=== PATIENT | female | born 1995 | race Caucasian/White ===

== ENCOUNTER 2018-07-25 23:17 | Emergency (ER) | payer SELFPAY ==
[2018-07-25 23:48] LABS: Absolute Lymphocytes (CBC) 2.4 K/uL (0.7-4.9); Absolute Monocytes 0.8 K/uL (0.1-1.3); Absolute Neutrophil 7.4 K/uL (1.8-8.0); Basophils % 0.7 % (0-1.3); Eosinophils % 0.6 % (0-4.4); Hematocrit 40.4 % (36.0-45.0); Lymphocytes % 22.3 % (15.3-44.8); MCH 32.3 pg (27.0-35.0); MCV 91.7 fL (80-100); MPV 7.4 fL (7.6-11.3); Monocytes % 7.5 % (3.3-12.3)
[2018-07-25] MEDS ORDERED: THIAMINE 200 MG/2 ML INJ ONE (23:49)
[2018-07-25] MEDS ORDERED: MULTIVITAMINS 10 ML VIAL (INJ) IV ONE (23:50)
[2018-07-25] MEDS ORDERED: NA CHLORIDE 0.9% 2,000 ML ONE (23:50)
[2018-07-25] MEDS ORDERED: FOLIC ACID 5 MG/ML VIAL ONE (23:50)
[2018-07-25 23:54] LABS: Urine Blood NEGATIVE (NEG); Urine Glucose NEGATIVE (NEG); Urine Protein NEGATIVE (NEG); Urine Specific Gravity <1.005 (1.005-1.030); Urine pH 6.5 (5.0-7.0)
[2018-07-25 23:57] LABS: Protime INR 1.11
[2018-07-25 23:57] LABS: Barbiturates NEGATIVE (NEGATIVE); Benzodiazepines NEGATIVE (NEGATIVE); Cocaine NEGATIVE (NEGATIVE); METHAMPHETAM NEGATIVE (NEGATIVE); Methadone NEGATIVE (NEGATIVE); Opiates NEGATIVE (NEGATIVE); Phencyclidine NEGATIVE (NEGATIVE); THC Cannibis NEGATIVE (NEGATIVE)
[2018-07-26 00:20] LABS: ALT/SGPT 25 U/L (12-78); AST/SGOT 20 U/L (15-37); Albumin 3.9 g/dL (3.4-5.0); Alkaline Phosphatase 91 U/L (45-117); BUN Blood Urea Nitrogen 4 mg/dL (7-18); Bicarbonate 29 mmol/L (21-32); Bilirubin Direct < 0.1 mg/dL (0-0.2); Bilirubin Total 0.2 mg/dL (0.2-1.0); Glucose Level 68 mg/dL (74-106); Potassium 3.7 mmol/L (3.5-5.1); Protein, Total 7.8 g/dL (6.4-8.2); Sodium Level 139 mmol/L (136-145)
[2018-07-26] MEDS ORDERED: D50W 25 GM/50 ML SYRINGE IV ONE ×2 (00:40→02:39)
[2018-07-26] MEDS ORDERED: NA CHLORIDE 0.9% 1,000 ML ONE ×2 (03:32→07:37)
--- NOTE | 2018-07-26 07:32 | ER ---
Nurse's Notes [facility] Name: Myranda Madsen Age: 23 yrs Sex: Female : 1995 Arrival Date: 07/25/2018 Time: 23:20 Bed 17 Private MD: Diagnosis: Major depressive disorder, recurrent;Suicidal ideations;Suicide attempt;Alcohol abuse with intoxication;Post-traumatic stress disorder (PTSD) Presentation: 07/25 23:20 Presenting complaint: EMS states: Patient ingested about 20 Tramadol pills about one ao and half hour ago. Patient was drinking wine and stated that she had about two bottles of wine. Patient also stated that she took two clonazepam. Patient reported suicidal thoughts but denies at this time any suicidal ideation. EMS report vomiting x1. Poison control was called by EMS and the recommendations was to put her in seizure precautions and monitor for respiratory distress. Transition of care: patient was not received from another setting of care. Onset of symptoms was July 25, 2018 at 21:00. Risk Assessment: Do you want to hurt yourself or someone else? Patient reports no desire to harm self or others. Initial Sepsis Screen: Does the patient meet any 2 criteria? No. Patient's initial sepsis screen is negative. Does the patient have a suspected source of infection? No. Patient's initial sepsis screen is negative. Care prior to arrival: None. 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 - Social history:: Smoking status: Patient uses tobacco products, smokes one-half pack cigarettes per day, Patient uses alcohol, only on a social basis. Patient/guardian denies using street drugs. - Ebola Screening: : Patient negative for fever greater than or equal to 101.5 degrees Fahrenheit, and additional compatible Ebola Virus Disease symptoms Patient denies exposure to infectious person Patient denies travel to an Ebola-affected area in the 21 days before illness onset. Screenin:47 Abuse screen: Denies threats or abuse. Denies injuries from another. Nutritional ao screening: No deficits noted. Tuberculosis screening: No symptoms or risk factors identified. Fall Risk None identified. Assessment: 23:33 General: Appears in no apparent distress. Behavior is calm, drowsy, flat. Pain: Denies ao pain. Neuro: Level of Consciousness is awake, alert, obeys commands, Oriented to person, place, time, situation, Weakness Speech is slurred, Facial symmetry appears normal, Pupils are PERRLA. Cardiovascular: Denies chest pain, shortness of breath. Respiratory: Airway is patent Respiratory effort is even, unlabored, Respiratory pattern is regular, symmetrical. GI: Abdomen is non-distended. : No signs and/or symptoms were reported regarding the genitourinary system. EENT: No signs and/or symptoms were reported regarding the EENT system. Derm: Skin is intact, Skin is moist, Skin is pink, warm \T\ dry. normal, Skin temperature is warm. Musculoskeletal: No signs and/or symptoms reported regarding the musculoskeletal system. Musculoskeletal: Circulation, motion, and sensation intact. Range of motion: intact in all extremities. 23:57 Reassessment: No changes from previously documented assessment. Patient and/or family jd3 updated on plan of care and expected duration. Pain level reassessed. Patient is alert, oriented x 3, equal unlabored respirations, skin warm/dry/pink. 07/26 00:14 Reassessment: No changes from previously documented assessment. Patient and/or family jd3 updated on plan of care and expected duration. Pain level reassessed. Patient is alert, oriented x 3, equal unlabored respirations, skin warm/dry/pink. boyfriend at bedside. 01:04 Reassessment: Patient appears in no apparent distress at this time. No changes from jd3 previously documented assessment. Patient and/or family updated on plan of care and expected duration. Pain level reassessed. Patient is alert, oriented x 3, equal unlabored respirations, skin warm/dry/pink. Scottie Mary- boyfriend--[phone]. 02:00 Reassessment: Patient appears in no apparent distress at this time. No changes from jd3 previously documented assessment. Patient and/or family updated on plan of care and expected duration. Pain level reassessed. Patient is alert, oriented x 3, equal unlabored respirations, skin warm/dry/pink. resting in bed with eyes closed. 03:00 Reassessment: Patient appears in no apparent distress at this time. No changes from jd3 previously documented assessment. Patient and/or family updated on plan of care and expected duration. Pain level reassessed. Patient is alert, oriented x 3, equal unlabored respirations, skin warm/dry/pink. 04:00 Reassessment: Patient appears in no apparent distress at this time. Patient and/or jd3 family updated on plan of care and expected duration. Pain level reassessed. Patient is alert, oriented x 3, equal unlabored respirations, skin warm/dry/pink. 05:00 Reassessment: Patient appears in no apparent distress at this time. No changes from jd3 previously documented assessment. Patient and/or family updated on plan of care and expected duration. Pain level reassessed. Patient is alert, oriented x 3, equal unlabored respirations, skin warm/dry/pink. 06:00 Reassessment: Patient appears in no apparent distress at this time. No changes from jd3 previously documented assessment. Patient and/or family updated on plan of care and expected duration. Pain level reassessed. Patient is alert, oriented x 3, equal unlabored respirations, skin warm/dry/pink. 07:15 Reassessment: provider at bedside. General: Appears comfortable, well groomed, Behavior cb4 is calm, cooperative, Smells of. General:. Pain: Denies pain. Neuro: Level of Consciousness is awake, alert, obeys commands, Oriented to person, place, time, situation, Moves all extremities. Weakness Speech is normal, Facial symmetry appears normal, Pupils are PERRLA, Cardiovascular: Denies chest pain. Respiratory: Breath sounds are clear. GI: Abdomen is non-distended, : No signs and/or symptoms were reported regarding the genitourinary system. EENT: No signs and/or symptoms were reported regarding the EENT system. Derm:. Musculoskeletal: No signs and/or symptoms reported regarding the musculoskeletal system. Range of motion: intact in all extremities. Vital Signs: 07/25 23:29 BP 124 / 98; Pulse 125; Resp 20; Temp 98.8(O); Pulse Ox 100% on R/A; Weight 99.79 kg; ao Height 5 ft. 5 in. (165.10 cm); Pain 0/10; 07/26 00:15 BP 129 / 95; Pulse 124; Resp 20 S; Pulse Ox 100% on R/A; jd3 00:30 BP 126 / 85; Pulse 118; Resp 20 S; Pulse Ox 95% on R/A; mh6 01:05 BP 120 / 84; Pulse 113; Resp 16 S; Pulse Ox 97% on R/A; Pain 0/10; jd3 01:30 BP 114 / 71; Pulse 107; Resp 16 S; Pulse Ox 96% on R/A; mh6 02:00 BP 110 / 74; Pulse 102; Resp 16 S; Pulse Ox 95% on R/A; Pain 0/10; mh6 03:00 BP 96 / 66; Pulse 107; Resp 18 S; Pulse Ox 96% on R/A; mh6 03:30 BP 95 / 61; Pulse 110; Resp 16 S; Pulse Ox 97% on R/A; mh6 04:00 BP 105 / 73; Pulse 100; Resp 18; Temp 97.9; Pulse Ox 97% ; Pain 0/10; mh6 04:30 BP 103 / 76; Pulse 99; Resp 16 S; Pulse Ox 96% on R/A; mh6 05:00 BP 100 / 73; Pulse 106; Resp 16 S; Pulse Ox 95% on R/A; mh6 05:30 BP 106 / 75; Pulse 104; Resp 16 S; Pulse Ox 94% on R/A; mh6 06:00 BP 109 / 76; Pulse 111; Resp 16 S; Pulse Ox 94% on R/A; mh6 06:30 BP 106 / 77; Pulse 109; Resp 15 S; Pulse Ox 95% on R/A; mh6 08:00 BP 125 / 88; Pulse 99; Resp 16; Temp 98.1(O); Pulse Ox 98% ; cb4 07/25 23:29 Body Mass Index 36.61 (99.79 kg, 165.10 cm) ao ED Course: 07/25 23:20 Patient arrived in ED. ao 23:24 Fortunato Headley PA is PHCP. cp 23:24 Miller Ramirez MD is Attending Physician. cp 23:25 Triage completed. ao 23:25 Maintain EMS IV. Dressing intact. Good blood return noted. Site clean \T\ dry. Gauge \T\ ao site: 20 G Right AC. 23:30 Safety Checks: Personal items have been removed. The door is open or patient has been ao placed in a hallway bed/chair. There are no family/friend visitors at this time. 23:32 Arm band placed on right wrist. Patient placed in an exam room, on a stretcher, on ao youth nutritional monitor, on pulse oximetry, Patient notified of wait time. 23:40 Abdullahi Layne, RN is Primary Nurse. ao 23:45 Safety Checks: Personal items have been removed. The door is open or patient has been ao placed in a hallway bed/chair. There are no family/friend visitors at this time. 23:47 Patient has correct armband on for positive identification. monitoring and evaluation advisor on. Pulse ao ox on. NIBP on. 23:56 Report given to RUBEN Downing. ao 23:57 Joselito Baker RN is Primary Nurse. jd3 07/26 00:00 Appears tearful. Safety Checks: Personal items have been removed. The door is open or mh6 patient has been placed in a hallway bed/chair. There are no family/friend visitors at this time Sitter present at this time. 00:15 Appears tearful. Safety Checks: Personal items have been removed. The door is open or mh6 patient has been placed in a hallway bed/chair. A family member and/or friend is present and encouraged to stay. Sitter present at this time. 00:30 Resting quietly. Safety Checks: Personal items have been removed. The door is open or mh6 patient has been placed in a hallway bed/chair. A family member and/or friend is present and encouraged to stay. Sitter present at this time. 00:45 Resting quietly. Safety Checks: Personal items have been removed. The door is open or mh6 patient has been placed in a hallway bed/chair. A family member and/or friend is present and encouraged to stay. Sitter present at this time. 01:00 No apparent distress. Appears to be sleeping. Safety Checks: Personal items have been mh6 removed. The door is open or patient has been placed in a hallway bed/chair. A family member and/or friend is present and encouraged to stay. Sitter present at this time. 01:15 No apparent distress. Appears to be sleeping. Safety Checks: Personal items have been mh6 removed. The door is open or patient has been placed in a hallway bed/chair. A family member and/or friend is present and encouraged to stay. Sitter present at this time. 01:30 No apparent distress. Appears to be sleeping. Safety Checks: Personal items have been mh6 removed. The door is open or patient has been placed in a hallway bed/chair. A family member and/or friend is present and encouraged to stay. Sitter present at this time. 01:45 Safety Checks: Personal items have been removed. The door is open or patient has been mh6 placed in a hallway bed/chair. A family member and/or friend is present and encouraged to stay. Sitter present at this time. 02:00 Appears to be sleeping. Safety Checks: Personal items have been removed. The door is mh6 open or patient has been placed in a hallway bed/chair. A family member and/or friend is present and encouraged to stay. Sitter present at this time. 02:15 Appears to be sleeping. Safety Checks: Personal items have been removed. The door is mh6 open or patient has been placed in a hallway bed/chair. A family member and/or friend is present and encouraged to stay. Sitter present at this time. 02:30 No apparent distress. Appears to be sleeping. Safety Checks: Personal items have been mh6 removed. The door is open or patient has been placed in a hallway bed/chair. A family member and/or friend is present and encouraged to stay. Sitter present at this time. 02:45 Appears to be sleeping. Safety Checks: Personal items have been removed. The door is mh6 open or patient has been placed in a hallway bed/chair. A family member and/or friend is present and encouraged to stay. Sitter present at this time. 03:00 Appears to be sleeping. Safety Checks: Personal items have been removed. The door is mh6 open or patient has been placed in a hallway bed/chair. A family member and/or friend is present and encouraged to stay. Sitter present at this time. 03:15 Safety Checks: Personal items have been removed. The door is open or patient has been mh6 placed in a hallway bed/chair. A family member and/or friend is present and encouraged to stay. Sitter present at this time. 03:30 Safety Checks: Personal items have been removed. The door is open or patient has been mh6 placed in a hallway bed/chair. A family member and/or friend is present and encouraged to stay. Sitter present at this time. 03:45 Appears to be sleeping. Safety Checks: Personal items have been removed. The door is mh6 open or patient has been placed in a hallway bed/chair. A family member and/or friend is present and encouraged to stay. Sitter present at this time. 04:00 Appears to be sleeping. Safety Checks: Personal items have been removed. The door is mh6 open or patient has been placed in a hallway bed/chair. A family member and/or friend is present and encouraged to stay. Sitter present at this time. 04:15 Appears to be sleeping. Safety Checks: Personal items have been removed. The door is mh6 open or patient has been placed in a hallway bed/chair. A family member and/or friend is present and encouraged to stay. Sitter present at this time. 04:30 Appears to be sleeping. Safety Checks: Personal items have been removed. The door is mh6 open or patient has been placed in a hallway bed/chair. A family member and/or friend is present and encouraged to stay. Sitter present at this time. 04:45 Appears to be sleeping. Safety Checks: Personal items have been removed. The door is mh6 open or patient has been placed in a hallway bed/chair. A family member and/or friend is present and encouraged to stay. Sitter present at this time. 05:00 Appears to be sleeping. Safety Checks: Personal items have been removed. The door is mh6 open or patient has been placed in a hallway bed/chair. A family member and/or friend is present and encouraged to stay. Sitter present at this time. 05:15 No apparent distress. Appears to be sleeping. Safety Checks: Personal items have been mh6 removed. The door is open or patient has been placed in a hallway bed/chair. A family member and/or friend is present and encouraged to stay. Sitter present at this time. 05:30 No apparent distress. Appears to be sleeping. Safety Checks: Personal items have been mh6 removed. The door is open or patient has been placed in a hallway bed/chair. A family member and/or friend is present and encouraged to stay. Sitter present at this time. 05:45 No apparent distress. Appears to be sleeping. Safety Checks: Personal items have been mh6 removed. The door is open or patient has been placed in a hallway bed/chair. A family member and/or friend is present and encouraged to stay. Sitter present at this time. 06:00 No apparent distress. Appears to be sleeping. Safety Checks: Personal items have been mh6 removed. The door is open or patient has been placed in a hallway bed/chair. A family member and/or friend is present and encouraged to stay. Sitter present at this time. 06:15 Appears to be sleeping. Safety Checks: Personal items have been removed. The door is mh6 open or patient has been placed in a hallway bed/chair. A family member and/or friend is present and encouraged to stay. Sitter present at this time. 06:30 Appears to be sleeping. Safety Checks: Personal items have been removed. The door is mh6 open or patient has been placed in a hallway bed/chair. A family member and/or friend is present and encouraged to stay. Sitter present at this time. 06:45 No apparent distress. Appears to be sleeping. Safety Checks: Personal items have been mh6 removed. The door is open or patient has been placed in a hallway bed/chair. A family member and/or friend is present and encouraged to stay. Sitter present at this time. 07:00 Safety Checks: Personal items have been removed. The door is open or patient has been cb4 placed in a hallway bed/chair. A family member and/or friend is present and encouraged to stay. 07:12 Attending Physician role handed off by Miller Ramirez MD justin 07:12 Fortunato Cason MD is Attending Physician. justin 07:14 Safety Checks: Personal items have been removed. The door is open or patient has been cb4 placed in a hallway bed/chair. A family member and/or friend is present and encouraged to stay. 07:28 ETOH Level: redraw \T\0600 Sent. cb4 07:29 Attending Physician role handed off by Fortunato Cason MD rn 07:29 Miller Ramirez MD is Attending Physician. rn 07:30 No apparent distress. Safety Checks: Personal items have been removed. The door is open cb4 or patient has been placed in a hallway bed/chair. A family member and/or friend is present and encouraged to stay. 07:32 Attending Physician role handed off by Miller Ramirez MD cha 07:32 Fortunato Cason MD is Attending Physician. [facility] 07:45 No apparent distress. Safety Checks: Personal items have been removed. The door is open cb4 or patient has been placed in a hallway bed/chair. A family member and/or friend is present and encouraged to stay. Bolus hung. 08:00 No apparent distress. Safety Checks: Personal items have been removed. The door is open cb4 or patient has been placed in a hallway bed/chair. A family member and/or friend is present and encouraged to stay. [facility] surgical device sales representative in with patient. 08:15 No apparent distress. Resting quietly. Safety Checks: Personal items have been removed. cb4 The door is open or patient has been placed in a hallway bed/chair. A family member and/or friend is present and encouraged to stay. 08:30 No apparent distress. Resting quietly. Safety Checks: Personal items have been removed. cb4 The door is open or patient has been placed in a hallway bed/chair. A family member and/or friend is present and encouraged to stay. 08:45 No apparent distress. Resting quietly. Safety Checks: Personal items have been removed. cb4 The door is open or patient has been placed in a hallway bed/chair. A family member and/or friend is present and encouraged to stay. 09:12 No provider procedures requiring assistance completed. IV discontinued, intact, iw bleeding controlled, No redness/swelling at site. Pressure dressing applied. Administered Medications: 07/25 23:52 Drug: Banana Bag - (NS 0.9% 1000 ml, foLIC Acid 1 mg, Thiamine 100 mg, Multivitamin 1 ak1 amp) Route: IV; Rate: 200 ml/hr; Site: right antecubital; 07/26 09:13 Follow up: IV Status: Order to discontinue infusion iw 07/25 23:52 Drug: NS 0.9% 1000 ml Route: IV; Rate: 1 bolus; Site: right antecubital; ak1 07/26 01:10 Follow up: Response: No adverse reaction; IV Status: Completed infusion; IV Intake: jd3 1000ml 00:40 Drug: D50W 50 ml Route: IVP; Site: right antecubital; jd3 02:40 Follow up: Response: No adverse reaction jd3 02:40 Drug: D50W 50 ml Route: IVP; Site: right antecubital; jd3 03:35 Follow up: Response: No adverse reaction jd3 03:35 Drug: NS 0.9% 1000 ml Route: IV; Rate: 1 bolus; Site: right antecubital; jd3 07:29 Follow up: IV Status: Completed infusion cb4 07:42 Drug: NS 0.9% 1000 ml Route: IV; Rate: 1 bolus; Site: right antecubital; cb4 08:41 Follow up: IV Status: Completed infusion; IV Intake: 1000ml cb4 Point of Care Testing: Blood Glucose: 02:00 Blood Glucose: 68 mg/dL; jd3 04:50 Blood Glucose: 81 mg/dL; jd3 Ranges: Intake: 01:10 IV: 1000ml; Total: 1000ml. jd3 08:41 IV: 1000ml; Total: 2000ml. cb4 Outcome: 07:31 Discharge ordered by . rn 09:12 Discharged to home ambulatory, with family. iw 09:12 Condition: good 09:12 Discharge instructions given to patient, family, Instructed on discharge instructions, follow up and referral plans. Demonstrated understanding of instructions, follow-up care. 09:13 Patient left the ED. hj Signatures: Fortunato Cason MD MD cha Williams, Irene, RN RN iw Nieto, Roman, MD MD rn Krenek, Amber, RN RN akAleksandr Hong RN RN hj Page, Corey, PA PA cp Ortiz, Alex, RN RN ao Davies, Jonathon, RN RN jd3 Habalo, Maria Christi Pinzon cb4 Corrections: (The following items were deleted from the chart) 07/25 23:29 23:20 Presenting complaint: EMS states: Patient ingested about 20 tramadol pills about ao one and half hour ago. Patient was drinking wine and stated that she had about two glasses of wine. Patient also stated that she took two clonazepam. Patient reported suicidal thoughts but denies at this time any suicidal ideation. ao 23:41 23:29 BP 158 / 54; Pulse 81bpm; Resp 20bpm; Pulse Ox 100% RA; Temp 98.8F Oral; 99.79 ao kg; Height 5 ft. 5 in.; BMI: 36.6; Pain 0/10; ao 23:56 23:20 Presenting complaint: EMS states: Patient ingested about 20 Tramadol pills about ao one and half hour ago. Patient was drinking wine and stated that she had about two glasses of wine. Patient also stated that she took two clonazepam. Patient reported suicidal thoughts but denies at this time any suicidal ideation. EMS report vomiting x1. Poison control was called by EMS and the recommendations was to put her in seizure precautions and monitor for respiratory distress ao 07/26 00:45 00:00 Safety Checks: Personal items have been removed. The door is open or patient has mh6 been placed in a hallway bed/chair. There are no family/friend visitors at this time Sitter present at this time. [facility] 45 00:15 Appears tearful. [place] [id number] :45 00:15 Safety Checks: Personal items have been removed. The door is open or patient has mh6 been placed in a hallway bed/chair. A family member and/or friend is present and encouraged to stay. Sitter present at this time. [facility] 01:05 00:14 Reassessment: No changes from previously documented assessment. Patient and/or jd3 family updated on plan of care and expected duration. Pain level reassessed. Patient is alert, oriented x 3, equal unlabored respirations, skin warm/dry/pink. friend at bedside. jd3 02:52 01:04 Reassessment: Patient appears in no apparent distress at this time. No changes jd3 from previously documented assessment. Patient and/or family updated on plan of care and expected duration. Pain level reassessed. Patient is alert, oriented x 3, equal unlabored respirations, skin warm/dry/pink. Scottie Hernandez- boyfriend--[phone] [facility] 03:09 02:35 Blood Glucose: Blood Glucose Reading=68 mg/dL. [place] [id number] 03:37 01:45 No apparent distress. Appears to be sleeping. [place] [id number] 03:38 03:15 No apparent distress. Appears to be sleeping. [place] [id number] 03:38 03:30 No apparent distress. Appears to be sleeping. [place] [id number] 04:07 07/25 23:30 Safety Checks: Personal items have been removed. The door is open or ao patient has been placed in a hallway bed/chair. A family member and/or friend is present and encouraged to stay. ao 07/26 04:07 09 23:45 Safety Checks: Personal items have been removed. The door is open or ao patient has been placed in a hallway bed/chair. A family member and/or friend is present and encouraged to stay. ao 07/26 08:36 08:15 No apparent distress. Resting quietly. cb4 cb4
--- NOTE | 2018-07-26 07:32 | EDPHYS ---
Physician Documentation [facility] Name: Myranda Madsen Age: 23 yrs Sex: Female : 1995 Arrival Date: 07/25/2018 Time: 23:20 Bed 17 Private MD: ED Physician Fortunato Cason HPI: 07/25 23:30 This 23 yrs old Female presents to ER via EMS with complaints of Overdose. cp 23:30 The patient presents to the emergency department after a known overdose, that was cp intentional. 23:30 Context: Method: the patient has a confirmed or suspected ingestion, approximately 20 cp tablets of 50 mg tramadol that were prescribed to pet dog along with 2 bottles of wine, Time: 1.5 hour(s) ago, Psychiatric history: the patient has a known psychiatric disorder, depression. 23:30 Associated signs and symptoms: Pertinent positives: tearfulness, Pertinent negatives: cp auditory hallucinations, loss of consciousness, visual hallucinations. 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 - Social history:: Smoking status: Patient uses tobacco products, smokes one-half pack cigarettes per day, Patient uses alcohol, only on a social basis. Patient/guardian denies using street drugs. - Ebola Screening: : Patient negative for fever greater than or equal to 101.5 degrees Fahrenheit, and additional compatible Ebola Virus Disease symptoms Patient denies exposure to infectious person Patient denies travel to an Ebola-affected area in the 21 days before illness onset. ROS: 23:35 Constitutional: Negative for body aches, chills, fever, poor PO intake. cp 23:35 Eyes: Negative for injury, pain, redness, and discharge. cp 23:35 Cardiovascular: Negative for chest pain. cp 23:35 Respiratory: Negative for cough, shortness of breath, wheezing. 23:35 Abdomen/GI: Negative for abdominal pain, vomiting, diarrhea, constipation. cp 23:35 Neuro: Negative for altered mental status, seizure activity, weakness. 23:35 Psych: Positive for depression, suicide gesture, suicidal ideation, Negative for auditory hallucinations, visual hallucinations. 23:35 All other systems are negative. Exam: 23:40 Constitutional: The patient appears in no acute distress, alert, awake, cp non-diaphoretic, non-toxic, well developed, well nourished. 23:40 Head/Face: Normocephalic, atraumatic. cp 23:40 Eyes: Periorbital structures: appear normal, Pupils: equal, round, and reactive to light and accomodation, Extraocular movements: intact throughout, Conjunctiva: normal, no exudate, no injection, Lids and lashes: appear normal, bilaterally. 23:40 ENT: External ear(s): are unremarkable, Ear canal(s): are normal, clear, TM's: dullness, bilaterally, Nose: is normal, Mouth: Lips: moist, Oral mucosa: moist, Posterior pharynx: is normal, airway is patent, no erythema, no exudate. 23:40 Neck: ROM/movement: is normal, is supple, without pain, no range of motions limitations, no nuchal rigidity. 23:40 Chest/axilla: Inspection: normal, Palpation: is normal, no crepitus, no tenderness. 23:40 Cardiovascular: Rate: tachycardic, Rhythm: regular, Pulses: Pulses are 2+ in right radial artery and left radial artery. JVD: is not appreciated. 23:40 Respiratory: the patient does not display signs of respiratory distress, Respirations: normal, no use of accessory muscles, no retractions, no splinting, no tachypnea, labored breathing, is not present, Breath sounds: are clear throughout, no decreased breath sounds, no stridor, no wheezing. 23:40 Abdomen/GI: Inspection: abdomen appears normal, Palpation: abdomen is soft and non-tender, in all quadrants, rebound tenderness, is not appreciated, voluntary guarding, is not appreciated, involuntary guarding, is not appreciated. 23:40 Back: pain, is absent, ROM is normal. 23:40 Skin: cellulitis, is not appreciated, no rash present. 23:40 Neuro: Orientation: to person, place \T\ time. Mentation: lucid, able to follow commands, Motor: moves all fours, strength is normal. 23:40 Psych: Affect is calm, Patient having thoughts of suicide. Judgement / Insight is impaired. Delusions/hallucinations are not present. Vital Signs: 23:29 BP 124 / 98; Pulse 125; Resp 20; Temp 98.8(O); Pulse Ox 100% on R/A; Weight 99.79 kg; ao Height 5 ft. 5 in. (165.10 cm); Pain 0/10; 07/26 00:15 BP 129 / 95; Pulse 124; Resp 20 S; Pulse Ox 100% on R/A; jd3 00:30 BP 126 / 85; Pulse 118; Resp 20 S; Pulse Ox 95% on R/A; mh6 01:05 BP 120 / 84; Pulse 113; Resp 16 S; Pulse Ox 97% on R/A; Pain 0/10; jd3 01:30 BP 114 / 71; Pulse 107; Resp 16 S; Pulse Ox 96% on R/A; mh6 02:00 BP 110 / 74; Pulse 102; Resp 16 S; Pulse Ox 95% on R/A; Pain 0/10; mh6 03:00 BP 96 / 66; Pulse 107; Resp 18 S; Pulse Ox 96% on R/A; mh6 03:30 BP 95 / 61; Pulse 110; Resp 16 S; Pulse Ox 97% on R/A; mh6 04:00 BP 105 / 73; Pulse 100; Resp 18; Temp 97.9; Pulse Ox 97% ; Pain 0/10; mh6 04:30 BP 103 / 76; Pulse 99; Resp 16 S; Pulse Ox 96% on R/A; mh6 05:00 BP 100 / 73; Pulse 106; Resp 16 S; Pulse Ox 95% on R/A; mh6 05:30 BP 106 / 75; Pulse 104; Resp 16 S; Pulse Ox 94% on R/A; mh6 06:00 BP 109 / 76; Pulse 111; Resp 16 S; Pulse Ox 94% on R/A; mh6 06:30 BP 106 / 77; Pulse 109; Resp 15 S; Pulse Ox 95% on R/A; mh6 08:00 BP 125 / 88; Pulse 99; Resp 16; Temp 98.1(O); Pulse Ox 98% ; cb4 07/25 23:29 Body Mass Index 36.61 (99.79 kg, 165.10 cm) ao MDM: 07/25 23:24 Patient medically screened. cp 07/26 00:35 Data reviewed: vital signs, nurses notes, lab test result(s), EKG. Test interpretation: cp by ED physician or midlevel provider: ECG. 07:36 Patient medically screened. [facility] 07/25 23:25 Order name: Acetaminophen; Complete Time: 00:30 07/25 23:25 Order name: Basic Metabolic Panel; Complete Time: 00:30 07/26 00:31 Interpretation: Normal except: GLUC 68; BUN 4; CA 8.2. 07/25 23:25 Order name: CBC with Diff; Complete Time: 00:30 cp 07/25 23:25 Order name: ETOH Level; Complete Time: 00:30 07/25 23:25 Order name: Hepatic Function; Complete Time: 00:30 07/25 23:25 Order name: PT-INR; Complete Time: 00:30 07/25 23:25 Order name: Ptt, Activated; Complete Time: 00:30 07/25 23:25 Order name: Salicylate; Complete Time: 00:30 07/25 23:25 Order name: Urine Drug Screen; Complete Time: 00:30 07/25 23:38 Order name: Test, Serum; Complete Time: 00:30 07/25 23:40 Order name: Urine Dipstick--Ancillary (enter results); Complete Time: 00:30 [facility] 07/26 03:45 Order name: Glucose, Ancillary Testing; Complete Time: 04:50 EDOK 07/26 04:51 Order name: ETOH Level: redraw \T\0600 07/26 04:52 Order name: Alcohol Serum/Plasma; Complete Time: 07:12 EDOK 07/25 23:25 Order name: Urine Test (obtain specimen); Complete Time: 23:40 07/25 23:25 Order name: EKG; Complete Time: 23:26 07/25 23:25 Order name: EKG - Nurse/Tech; Complete Time: 23:38 cp 07/25 23:25 Order name: IV Saline Lock; Complete Time: 23:38 07/25 23:25 Order name: Labs collected and sent; Complete Time: 23:38 cp 07/25 23:25 Order name: Urine Dipstick-Ancillary (obtain specimen); Complete Time: 23:38 07/25 23:48 Order name: Seizure Precautions; Complete Time: 23:48 ao 07/26 02:34 Order name: Diet Regular; Complete Time: 02:34 cp 07/26 07:37 Order name: Diet Finger Food; Complete Time: 07:37 bd Administered Medications: 07/25 23:52 Drug: Banana Bag - (NS 0.9% 1000 ml, foLIC Acid 1 mg, Thiamine 100 mg, Multivitamin 1 ak1 amp) Route: IV; Rate: 200 ml/hr; Site: right antecubital; 07/26 09:13 Follow up: IV Status: Order to discontinue infusion iw 07/25 23:52 Drug: NS 0.9% 1000 ml Route: IV; Rate: 1 bolus; Site: right antecubital; ak1 07/26 01:10 Follow up: Response: No adverse reaction; IV Status: Completed infusion; IV Intake: jd3 1000ml 00:40 Drug: D50W 50 ml Route: IVP; Site: right antecubital; jd3 02:40 Follow up: Response: No adverse reaction jd3 02:40 Drug: D50W 50 ml Route: IVP; Site: right antecubital; jd3 03:35 Follow up: Response: No adverse reaction jd3 03:35 Drug: NS 0.9% 1000 ml Route: IV; Rate: 1 bolus; Site: right antecubital; jd3 07:29 Follow up: IV Status: Completed infusion cb4 07:42 Drug: NS 0.9% 1000 ml Route: IV; Rate: 1 bolus; Site: right antecubital; cb4 08:41 Follow up: IV Status: Completed infusion; IV Intake: 1000ml cb4 Point of Care Testing: Blood Glucose: 02:00 Blood Glucose: 68 mg/dL; jd3 04:50 Blood Glucose: 81 mg/dL; jd3 Ranges: Critical Glucose Levels:Adult <50 mg/dl or >400 mg/dl <40 mg/dl or >180 mg/dl Disposition: : Co-signature as Attending Physician, Fortunato Cason MD I agree with the assessment and justin plan of care. Disposition: 07/26/18 07:31 Discharged to Home. Impression: Major depressive disorder, recurrent, Suicidal ideations, Suicide attempt, Alcohol abuse with intoxication, Post-traumatic stress disorder (PTSD). - Condition is Stable. - Discharge Instructions: Alcohol Intoxication, Suicidal Feelings: How to Help Yourself, Alcohol Intoxication, [id number], Alcohol Abuse and Nutrition, Stress and Stress Management, Helping Someone Who is Suicidal. - Medication Reconciliation Form, Thank You Letter, Antibiotic Education, Prescription Opioid Use, SBAR form form. - Follow up: Private Physician; When: 2 - 3 days; Reason: Recheck today's complaints, Continuance of care, Re-evaluation by your physician. - Problem is new. - Symptoms have improved. Signatures: Dispatcher [employer] EDMS Fortunato Cason MD MD cha Nieto, Roman, MD MD rn Krenek, Amber RN RN ak1 Aleksandr Tang RN RUBNE hj Fortunato Headley PA PA cp Ortiz, Alex RN Joselito Gomez RN RN jd3 Bailey, Cheri cbDiann Hernandez RN iw Corrections: (The following items were deleted from the chart) 00:31 00:30 Normal except: GLUC 68; BUN 4. cp cp 09:13 07:31 07/26/2018 07:31 Discharged to Home. Impression: Major depressive disorder, hj recurrent; Suicidal ideations; Suicide attempt; Alcohol abuse with intoxication; Post-traumatic stress disorder (PTSD). Condition is Stable. Discharge Instructions: Helping Someone Who is Suicidal. Forms are SBAR form, Medication Reconciliation Form, Thank You Letter, Antibiotic Education, Prescription Opioid Use. Follow up: Private Physician; When: 2 - 3 days; Reason: Recheck today's complaints, Continuance of care, Re-evaluation by your physician. Problem is new. Symptoms have improved. rn
--- NOTE | 2018-07-26 08:07 | EKG ---
Test Date: 2018-07-25 Test Time: 23:35:45 Associate Dean: FERMIN MEASUREMENT RESULTS: Intervals: Rate: 138 NM: 122 QRSD: 106 QT: 294 QTc: 445 [place]: P: 54 NM: 122 QRS: 80 T: 43 INTERPRETIVE STATEMENTS: Sinus tachycardia Cannot rule out Anterior infarct, age undetermined Abnormal ECG No previous ECG available for comparison Electronically Signed On 07-26-18 08:06:38 CDT by Sylvain Norris
== END 2018-07-26 09:13 | disposition home or self-care (01) ==
LOC: ER 23:17
DX: F33.9 Major depressive disorder, recurrent, unspecified (principal); F10.129 Alcohol abuse with intoxication, unspecified; F43.10 Post-traumatic stress disorder, unspecified; F17.210 Nicotine dependence, cigarettes, uncomplicated
CPT/HCPCS: 36415; 80048; 80076; 80307; 80320; 80329; 81003; 82962; 84703; 85025; 85610; 85730; 93005; 96365; 96366; 96375; 99284; J3411; J7030